=== PATIENT | male | born 1970 | race African-American/Black ===

== ENCOUNTER 2017-09-16 16:20 | Inpatient (IN) ==
[2017-09-16] MEDS ORDERED: hydrALAZINE 20 MG/1 ML VIAL IV STA ×2 (16:58→18:00)
[2017-09-16 17:02] LABS: Basophils % 0.7 % (0.0-0.8); Eosinophils # 0.1 10*3/uL (0.0-0.87); Hematocrit 40.8 VOL% (42.0-52.0); Hemoglobin 13.8 GM/DL (14.0-18.0); Immature Granulocytes % 0.5 %; Immature Granulocytes Absolute 0.03 #; Lymphocytes # 0.8 10*3/uL (1.4-4.0); Lymphocytes % 13.7 % (21.2-54.2); Mean Corpuscular HGB Conc 33.8 GM/DL (32-36); Mean Corpuscular Hemoglobin 29 PG (27-34); Mean Corpuscular Volume 84.6 FL (87-102); Mean Platelet Volume 9.4 FL (9.6-12.0); Monocytes # 0.6 10*3/uL (0.11-0.8); Neutrophils # 4.4 10*3/uL (1.4-7.4); Neutrophils % 73.1 % (38.7-73.9); Platelet Count 343 T/CUMM (130-400); Red Blood Count 4.82 MC/CUMM (3.8-5.5); Red Cell Distribution Width 14.7 % (9.3-17.3)
[2017-09-16] MEDS ORDERED: hydrALAZINE 20 MG/1 ML VIAL ONE ×2 (17:02→18:02)
[2017-09-16 17:30] LABS: Calcium 9.6 MG/DL (8.5-10.1); Magnesium 2.4 MG/DL (1.8-2.4); Osmolality,Calculated 279.5 MOS/KG (273-304); Potassium 3.6 MMOL/L (3.5-5.1); Troponin I Only 0.021 NG/ML (0.00-0.045)
[2017-09-16] MEDS ORDERED: ACETAMINOPHEN 500 MG TABLET PO STA (18:00)
[2017-09-16] MEDS ORDERED: LORazepam 2 MG/1 ML VIAL IV PRN (18:46)
[2017-09-16 18:53] LABS: T4 (Thyroxine) 7.5 UG/DL (4.7-13.3); Thyroid Stimulating Hormone 1.28 uIU/ml (0.358-3.74)
[2017-09-16] MEDS ORDERED: niCARdipine INJ 25 MG in SODIUM CHLORIDE 0.9% 240 ML IV SCH (19:00)
[2017-09-16] MEDS ORDERED: ACETAMINOPHEN 325 MG TABLET PO PRN (19:04)
[2017-09-16] MEDS ORDERED: ONDANSETRON 4 MG/2 ML VIAL IV PRN (19:04)
[2017-09-16] MEDS ORDERED: ACETAMINOPHEN 500 MG TABLET ONE (19:05)
[2017-09-16 19:16] LABS: Alanine Aminotransferase 16 U/L (16-61); Albumin 3.6 G/DL (3.4-5.0); Alkaline Phosphatase 76 U/L (45-117); Aspartate Amino Transferase 15 U/L (0-37); Bilirubin,Direct < 0.100 MG/DL (0.0-0.20); Bilirubin,Indirect 0.3 MG/DL (0.0-1.0); Bilirubin,Total < 0.39 MG/DL (0.2-1.0); Cholesterol 171 MG/DL (50-200); HDL Cholesterol 62 MG/DL (40-60); Risk Ratio 2.76; Total Protein 7.7 G/DL (6.4-8.3); Triglycerides 174 MG/DL (2-150); VLDL CHOLESTEROL 34.8 MG/DL
[2017-09-16] MEDS: ENOXAPARIN 40 MG/0.4 ML SYRINGE SUBCUT SCH (20:13)
[2017-09-16] MEDS: DOCUSATE SODIUM 100 MG CAPSULE PO SCH (20:14)
[2017-09-16 20:50] LABS: Hepatitis A Ab IgM Quant 0.08 Index; Hepatitis A Ab IgM Result Negative (Negative); Hepatitis B Core IgM Quant 0.12 Index; Hepatitis B Core IgM Result Negative (Negative); Hepatitis B Surface Ag Quant 0.37 Index; Hepatitis B Surface Ag Result Negative (Negative); Hepatitis C Virus Ab Quant 0.16 Index; Hepatitis C Virus Ab Result Negative (Negative)
[2017-09-16] MEDS ORDERED: CARVEDILOL 12.5 MG TABLET PO SCH (21:00)
[2017-09-17 03:41] LABS: Basophils % 0.6 % (0.0-0.8); Eosinophils # 0.2 10*3/uL (0.0-0.87); Eosinophils % 2.3 % (0.00-10.9); Hematocrit 38.7 VOL% (42.0-52.0); Hemoglobin 12.8 GM/DL (14.0-18.0); Immature Granulocytes % 0.3 %; Immature Granulocytes Absolute 0.02 #; Lymphocytes # 2.2 10*3/uL (1.4-4.0); Lymphocytes % 29.6 % (21.2-54.2); Mean Corpuscular HGB Conc 33.1 GM/DL (32-36); Mean Corpuscular Hemoglobin 28 PG (27-34); Mean Corpuscular Volume 85.2 FL (87-102); Mean Platelet Volume 9.4 FL (9.6-12.0); Monocytes # 0.9 10*3/uL (0.11-0.8); Monocytes % 12.4 % (1.7-12.7); Neutrophils % 54.8 % (38.7-73.9); Platelet Count 329 T/CUMM (130-400); Red Blood Count 4.54 MC/CUMM (3.8-5.5); Red Cell Distribution Width 14.8 % (9.3-17.3); White Blood Count 7.3 T/CUMM (4-12)
[2017-09-17 04:17] LABS: Albumin 3.5 G/DL (3.4-5.0); Bilirubin,Total 0.4 MG/DL (0.2-1.0); Calcium 8.9 MG/DL (8.5-10.1); Total Protein 6.7 G/DL (6.4-8.3)
[2017-09-17 04:18] LABS: Magnesium 2.3 MG/DL (1.8-2.4); Osmolality,Calculated 278.5 MOS/KG (273-304); Potassium 3.6 MMOL/L (3.5-5.1)
[2017-09-17 05:03] LABS: Apearance,Urine CLEAR (Clear); Bacteria,Urine Occasional /HPF (Few); Bilirubin,Urine Negative (Negative); Blood, Urine Small mg/dL (Negative); Glucose,Urine (UA) 50 mg/dL (Negative); Hyaline Casts,Urine 2 /LPF (0-3); Ketones,Urine Negative (Negative); Mucus,Urine Occasional /LPF (Occasional); Nitrite,Urine Negative (Negative); Protein,Urine 30 MG/DL; RBC,Urine <1 /HPF (0-4); Sperm,Urine Occasional /HPF (Negative); Squamous Epithelial Cell,Urine Occasional /HPF (0-10); Urine Color Yellow (Yellow); Urine Specific Gravity 1.016 (1.001-1.035); Urine Urobilinogen < 2.0 EU/DL (0.2-1.0); WBC,Urine 1 /HPF (0-6)
[2017-09-17 05:07] LABS: Barbiturates Screen,Urine Negative (Negative); Benzodiazepines Screen,Urine Negative (Negative); Cannabinoid Screen,Urine Positive (Negative); Opiate Screen,Urine Negative (Negative); Phencyclidine Screen,Urine Negative (Negative)
[2017-09-17] MEDS ORDERED: hydrALAZINE 20 MG/1 ML VIAL IV ONE (06:45)
[2017-09-17] MEDS: CARVEDILOL 25 MG TABLET PO SCH ×2 (08:56→21:30)
[2017-09-17] MEDS: DOCUSATE SODIUM 100 MG CAPSULE PO SCH ×2 (08:56→21:30)
[2017-09-17] MEDS: ASPIRIN EC 81 MG TABLET PO SCH (08:56)
[2017-09-17] MEDS: ATORVASTATIN 40 MG TABLET PO SCH (08:56)
[2017-09-17] MEDS: NICOTINE 21 MG/24 HR PATCH TRANSDERM SCH (08:56)
[2017-09-17] MEDS: MULTIVITAMIN (BEROCCA) TABLET PO SCH (08:56)
[2017-09-17] MEDS: amLODIPine 10 MG TABLET PO SCH (08:56)
[2017-09-17] MEDS: THIAMINE 100 MG TABLET PO SCH (08:57)
[2017-09-17] MEDS: PANTOPRAZOLE 40 MG TABLET PO SCH (08:57)
[2017-09-17] MEDS: ENOXAPARIN 40 MG/0.4 ML SYRINGE SUBCUT SCH (21:30)
[2017-09-18] MEDS: amLODIPine 10 MG TABLET PO SCH (09:51)
[2017-09-18] MEDS: NICOTINE 21 MG/24 HR PATCH TRANSDERM SCH (09:51)
[2017-09-18] MEDS: ASPIRIN EC 81 MG TABLET PO SCH (09:51)
[2017-09-18] MEDS: CARVEDILOL 25 MG TABLET PO SCH (09:51)
[2017-09-18] MEDS: PANTOPRAZOLE 40 MG TABLET PO SCH (09:51)
[2017-09-18] MEDS: DOCUSATE SODIUM 100 MG CAPSULE PO SCH (09:51)
[2017-09-18] MEDS: ATORVASTATIN 40 MG TABLET PO SCH (09:51)
[2017-09-18] MEDS: MULTIVITAMIN (BEROCCA) TABLET PO SCH (09:51)
[2017-09-18] MEDS: THIAMINE 100 MG TABLET PO SCH (09:51)
[2017-09-18] MEDS ORDERED: hydrALAZINE 25 MG TABLET PO SCH ×2 (14:00→17:00)
[2017-09-18 16:19] VITALS: BP 164/91
[2017-09-18 18:31] LABS: Troponin I Only 0.031 NG/ML (0.00-0.045)
== END 2017-09-18 18:59 | disposition home or self-care (01) | DRG 304 ==
LOC: N.ED 16:20 → N.EDINP 18:25 → N.CVR 19:08 → N.TELEN 09-17 12:59
PROVIDERS: ADMIT Internal Medicine Nephrology; ATTEND Internal Medicine Nephrology

== ENCOUNTER 2019-01-04 14:29 | Inpatient (IN) ==
[2019-01-04 15:12] LABS: Basophils % 0.4 % (0.0-0.8); Eosinophils % 0.1 % (0.00-10.9); Hematocrit 44.8 VOL% (42.0-52.0); Hemoglobin 14.3 GM/DL (14.0-18.0); Immature Granulocytes % 1.5 %; Immature Granulocytes Absolute 0.11 #; Lymphocytes # 0.9 10*3/uL (1.4-4.0); Lymphocytes % 11.6 % (21.2-54.2); Mean Corpuscular HGB Conc 31.9 GM/DL (32-36); Mean Corpuscular Volume 88.9 FL (87-102); Mean Platelet Volume 8.4 FL (9.6-12.0); Monocytes % 4.4 % (1.7-12.7); Platelet Count 328 T/CUMM (130-400); Red Blood Count 5.04 MC/CUMM (3.8-5.5); Red Cell Distribution Width 14.3 % (9.3-17.3); White Blood Count 7.5 T/CUMM (4-12)
[2019-01-04 15:29] LABS: Osmolality,Calculated 280.3 MOS/KG (273-304)
[2019-01-04] MEDS ORDERED: PHENYTOIN IV STA (15:52)
[2019-01-04] MEDS ORDERED: SODIUM CHLORIDE 0.9% IV STA (15:52)
[2019-01-04 16:29] LABS: Apearance,Urine CLEAR (Clear); Bilirubin,Urine Negative (Negative); Blood, Urine Negative (Negative); Glucose,Urine (UA) Negative (Negative); Ketones,Urine Negative (Negative); Nitrite,Urine Negative (Negative); Protein,Urine 30 MG/DL; RBC,Urine 1 /HPF (0-4); Squamous Epithelial Cell,Urine Occasional /HPF (0-10); Urine Color Yellow (Yellow); Urine Specific Gravity 1.008 (1.001-1.035); Urine Urobilinogen < 2.0 EU/DL (0.2-1.0); WBC,Urine 1 /HPF (0-6)
[2019-01-04] MEDS ORDERED: hydrALAZINE 20 MG/1 ML VIAL IV STA (16:45)
[2019-01-04 16:57] LABS: Barbiturates Screen,Urine Negative (Negative); Benzodiazepines Screen,Urine Positive (Negative); Cannabinoid Screen,Urine Negative (Negative); Opiate Screen,Urine Negative (Negative); Phencyclidine Screen,Urine Negative (Negative)
[2019-01-04] MEDS ORDERED: PROMETHAZINE 25 MG/1 ML VIAL IM PRN (17:09)
[2019-01-04] MEDS ORDERED: ONDANSETRON 4 MG/2 ML VIAL IV PRN (17:09)
[2019-01-04] MEDS ORDERED: LORazepam 2 MG/1 ML VIAL IV PRN (17:09)
[2019-01-04 17:46] LABS: Risk Ratio 1.95; Thyroid Stimulating Hormone 0.448 uIU/ml (0.358-3.74); VLDL CHOLESTEROL 9.2 MG/DL
[2019-01-04] MEDS: SODIUM CHLORIDE 0.45% 1,000 ML IV SCH (18:42)
[2019-01-04] MEDS: DEXAMETHASONE 4 MG/1 ML VIAL IV SCH (18:42)
[2019-01-04] MEDS: PHENYTOIN 100 MG/2 ML VIAL IV SCH (22:35)
[2019-01-05] MEDS: ACETAMINOPHEN 650 MG SUPP RECTAL PRN (00:53)
[2019-01-05] MEDS: SODIUM CHLORIDE 0.45% 1,000 ML IV SCH ×2 (02:45→11:20)
[2019-01-05] MEDS ORDERED: hydrALAZINE 20 MG/1 ML VIAL IV STA (05:26)
[2019-01-05] MEDS: DEXAMETHASONE 4 MG/1 ML VIAL IV SCH (05:46)
[2019-01-05 05:47] LABS: Basophils % 0.2 % (0.0-0.8); Hematocrit 44.3 VOL% (42.0-52.0); Hemoglobin 14.3 GM/DL (14.0-18.0); Immature Granulocytes % 0.9 %; Lymphocytes # 2.9 10*3/uL (1.4-4.0); Lymphocytes % 26.3 % (21.2-54.2); Mean Corpuscular HGB Conc 32.3 GM/DL (32-36); Mean Corpuscular Volume 87.7 FL (87-102); Mean Platelet Volume 8.6 FL (9.6-12.0); Monocytes % 7.1 % (1.7-12.7); Neutrophils % 65.5 % (38.7-73.9); Platelet Count 339 T/CUMM (130-400); Red Blood Count 5.05 MC/CUMM (3.8-5.5); Red Cell Distribution Width 14.2 % (9.3-17.3); White Blood Count 11.1 T/CUMM (4-12)
[2019-01-05] MEDS: PHENYTOIN 100 MG/2 ML VIAL IV SCH ×2 (05:54→13:49)
[2019-01-05] MEDS ORDERED: PHENYTOIN 100 MG/2 ML VIAL IV SCH (06:00)
[2019-01-05 06:10] LABS: Albumin 3.8 G/DL (3.4-5.0); Bilirubin,Total 0.6 MG/DL (0.2-1.0); Calcium 9.2 MG/DL (8.5-10.1); Osmolality,Calculated 281.1 MOS/KG (273-304); Total Protein 7.3 G/DL (6.4-8.3)
[2019-01-05] MEDS ORDERED: hydrALAZINE 20 MG/1 ML VIAL IV PRN (10:52)
[2019-01-05] MEDS ORDERED: ASPIRIN EC 325 MG TABLET PO PRN (11:04)
[2019-01-05] MEDS: CARVEDILOL 25 MG TABLET PO SCH ×2 (11:20→23:15)
[2019-01-05] MEDS: ATORVASTATIN 40 MG TABLET PO SCH (11:24)
[2019-01-05] MEDS ORDERED: ACETAMINOPHEN 325 MG TABLET PO PRN (13:31)
[2019-01-05] MEDS: levETIRAcetam 500 MG TABLET PO SCH (23:16)
[2019-01-05] MEDS: PHENYTOIN ER 100 MG CAPSULE PO SCH (23:16)
[2019-01-05] MEDS: DEXAMETHASONE 4 MG TABLET PO SCH (23:17)
[2019-01-06 02:52] LABS: Basophils % 0.2 % (0.0-0.8); Eosinophils % 0.2 % (0.00-10.9); Hematocrit 44.9 VOL% (42.0-52.0); Hemoglobin 14.5 GM/DL (14.0-18.0); Immature Granulocytes % 0.7 %; Lymphocytes # 1.3 10*3/uL (1.4-4.0); Mean Corpuscular HGB Conc 32.3 GM/DL (32-36); Mean Corpuscular Volume 88.6 FL (87-102); Mean Platelet Volume 8.9 FL (9.6-12.0); Monocytes % 10.9 % (1.7-12.7); Platelet Count 308 T/CUMM (130-400); Red Blood Count 5.07 MC/CUMM (3.8-5.5); Red Cell Distribution Width 14.7 % (9.3-17.3); White Blood Count 14.7 T/CUMM (4-12)
[2019-01-06 03:12] LABS: Albumin 3.4 G/DL (3.4-5.0); Bilirubin,Total 0.5 MG/DL (0.2-1.0); Calcium 8.6 MG/DL (8.5-10.1); Osmolality,Calculated 282.3 MOS/KG (273-304)
[2019-01-06] MEDS: ACETAMINOPHEN 650 MG SUPP RECTAL PRN (05:29)
[2019-01-06 08:24] LABS: Apearance,Urine CLOUDY (Clear); Bilirubin,Urine Negative (Negative); Blood, Urine Large mg/dL (Negative); Glucose,Urine (UA) Negative (Negative); Ketones,Urine 5 mg/dL (Negative); Mucus,Urine Occasional /LPF (Occasional); Nitrite,Urine Positive (Negative); Protein,Urine 30 MG/DL; RBC,Urine 112 /HPF (0-4); Urine Color Amber (Yellow); Urine Specific Gravity 1.024 (1.001-1.035); WBC,Urine 333 /HPF (0-6)
[2019-01-06] MEDS ORDERED: cefTRIAXone 1,000 MG in SYRINGE 1 EACH IV SCH (09:00)
[2019-01-06] MEDS ORDERED: SODIUM CHLORIDE 0.9% 500 ML IV ONE ×2 (09:20→10:58)
[2019-01-06] MEDS ORDERED: MAGNESIUM SULF RIDER 4 GM in PREMIX 1 EACH IV PRN (09:21)
[2019-01-06] MEDS ORDERED: MAGNESIUM SULF RIDER 2 GM in PREMIX 1 EACH IV PRN (09:21)
[2019-01-06] MEDS: PHENYTOIN ER 100 MG CAPSULE PO SCH ×3 (09:55→20:47)
[2019-01-06] MEDS: levETIRAcetam 500 MG TABLET PO SCH ×2 (09:56→20:47)
[2019-01-06] MEDS: ATORVASTATIN 40 MG TABLET PO SCH (09:56)
[2019-01-06] MEDS: PANTOPRAZOLE 40 MG TABLET PO SCH (09:56)
[2019-01-06] MEDS: CARVEDILOL 25 MG TABLET PO SCH ×2 (09:56→10:56)
[2019-01-06] MEDS: DEXAMETHASONE 4 MG TABLET PO SCH ×2 (09:56→20:47)
[2019-01-06] MEDS: SODIUM CHLORIDE 0.9% 1,000 ML IV SCH ×2 (11:57→19:39)
[2019-01-06] MEDS: ENOXAPARIN 40 MG/0.4 ML SYRINGE SUBCUT SCH (20:47)
[2019-01-07] MEDS: SODIUM CHLORIDE 0.9% 1,000 ML IV SCH (03:38)
[2019-01-07 04:58] LABS: Basophils % 0.2 % (0.0-0.8); Hematocrit 38.9 VOL% (42.0-52.0); Hemoglobin 12.4 GM/DL (14.0-18.0); Immature Granulocytes % 0.9 %; Immature Granulocytes Absolute 0.21 #; Lymphocytes # 1.7 10*3/uL (1.4-4.0); Lymphocytes % 7.2 % (21.2-54.2); Mean Corpuscular HGB Conc 31.9 GM/DL (32-36); Mean Platelet Volume 9.2 FL (9.6-12.0); Monocytes % 7.8 % (1.7-12.7); Neutrophils % 83.9 % (38.7-73.9); Platelet Count 262 T/CUMM (130-400); Red Blood Count 4.32 MC/CUMM (3.8-5.5); Red Cell Distribution Width 15.1 % (9.3-17.3); White Blood Count 23.5 T/CUMM (4-12)
[2019-01-07 05:18] LABS: Alanine Aminotransferase 33 U/L (16-61); Albumin 2.9 G/DL (3.4-5.0); Alkaline Phosphatase 100 U/L (45-117); Aspartate Amino Transferase 10 U/L (0-37); Bilirubin,Total < 0.39 MG/DL (0.2-1.0); Blood Urea Nitrogen 19 MG/DL (7-18); Calcium 8.2 MG/DL (8.5-10.1); Glucose 118 MG/DL (74-106); Total Protein 6.2 G/DL (6.4-8.3)
[2019-01-07 06:11] LABS: Platelet Estimate Normal
[2019-01-07 06:12] LABS: Polychromasia Slight
[2019-01-07] MEDS: cefTRIAXone 1,000 MG in SYRINGE 1 EACH IV SCH (10:07)
[2019-01-07] MEDS: PANTOPRAZOLE 40 MG TABLET PO SCH (10:08)
[2019-01-07] MEDS: PHENYTOIN ER 100 MG CAPSULE PO SCH ×3 (10:08→21:32)
[2019-01-07] MEDS: DEXAMETHASONE 4 MG TABLET PO SCH ×2 (10:08→22:58)
[2019-01-07] MEDS: levETIRAcetam 500 MG TABLET PO SCH ×2 (10:09→21:31)
[2019-01-07] MEDS: ATORVASTATIN 40 MG TABLET PO SCH (10:10)
[2019-01-07] MEDS: ENOXAPARIN 40 MG/0.4 ML SYRINGE SUBCUT SCH (21:33)
[2019-01-08 08:23] LABS: Basophils % 0.1 % (0.0-0.8); Hematocrit 39.5 VOL% (42.0-52.0); Hemoglobin 12.8 GM/DL (14.0-18.0); Immature Granulocytes % 0.7 %; Immature Granulocytes Absolute 0.06 #; Lymphocytes # 1.2 10*3/uL (1.4-4.0); Lymphocytes % 12.9 % (21.2-54.2); Mean Corpuscular HGB Conc 32.4 GM/DL (32-36); Mean Corpuscular Volume 89.2 FL (87-102); Mean Platelet Volume 8.7 FL (9.6-12.0); Monocytes % 6.4 % (1.7-12.7); Neutrophils % 79.9 % (38.7-73.9); Platelet Count 235 T/CUMM (130-400); Red Blood Count 4.43 MC/CUMM (3.8-5.5); Red Cell Distribution Width 15.2 % (9.3-17.3); White Blood Count 8.9 T/CUMM (4-12)
[2019-01-08] MEDS: PANTOPRAZOLE 40 MG TABLET PO SCH (08:50)
[2019-01-08] MEDS: DEXAMETHASONE 4 MG TABLET PO SCH (08:50)
[2019-01-08] MEDS: ATORVASTATIN 40 MG TABLET PO SCH (08:50)
[2019-01-08] MEDS: levETIRAcetam 500 MG TABLET PO SCH (08:50)
[2019-01-08] MEDS: PHENYTOIN ER 100 MG CAPSULE PO SCH (08:51)
[2019-01-08] MEDS: cefTRIAXone 1,000 MG in SYRINGE 1 EACH IV SCH (08:51)
[2019-01-08 12:21] VITALS: BP 108/76
== END 2019-01-08 15:30 | disposition home or self-care (01) | DRG 57 ==
LOC: EDBD → EDUNIT# → N.EDINP 14:29 → N.ED 14:29 → N.2E 17:43 → SUATTDRO 01-06 12:31
PROVIDERS: ADMIT Hospitalist; ATTEND Internal Medicine